=== PATIENT | female | born 1950 | race Caucasian/White ===

== ENCOUNTER 2020-04-21 17:02 | Inpatient (IN) | payer MEDICAID, MEDICARE ==
[2020-04-21 20:21] VITALS: BP 115/70
[2020-04-22] MEDS: Multivitamin Tab PO SCH (08:20)
--- NOTE | 2020-04-22 15:07 | History & Physical ---
ADMIT DATE: 04/21/2020 IDENTIFYING INFORMATION: The patient is a 70-year-old female. CHIEF COMPLAINT: No answer. HISTORY OF PRESENT ILLNESS: The patient was admitted on a hold for danger to self. HISTORY OF PRESENT ILLNESS: The patient was sent on a hold for grave disability. The patient was hyperverbal. She was tangential. She was psychotic, unable to tell the date, where she is, why she is here, hyperverbal. Unable to answer questions regarding suicide, homicide, or visual hallucination. The patient is gravely disabled; however, she agreed to come in. When I tried talk to her, she kept pulling her leg and then tell me great. Unable to participate in a meaningful conversation. The patient is unable to answer questions about sleep and appetite, the details that led to admission, unable to tell me the date, where she is, why she is here, unable to have a formal mental status exam, and answer any questions appropriately. PAST PSYCHIATRIC HISTORY: The patient is a well-known case to me. I have discharged her maybe 2 weeks ago back to the [facility] and I am not sure she has been taking her medication. SUBSTANCE ABUSE HISTORY: Unobtainable. The patient is unable to answer any question. MEDICAL HISTORY: Deferred to the medical doctor. ALLERGIES: THE PATIENT IS ALLERGIC TO LITHIUM. MEDICATIONS: Depakote 500 mg twice a day and Seroquel 25 mg 3 times a day. FAMILY AND SOCIAL HISTORY: The patient is apparently single, never , no children. She lives in a [facility], has been living there for a long period of time. The patient is unable to give me more information regarding education. Substance abuse history, family history, ____ information, unable to get because of her current mental status. The patient is demented, psychotic. MENTAL STATUS EXAMINATION: The patient is appropriately dressed, not very groomed. She was in her room, sitting in her bed. ____ answer the same all questions in the same way like she will say great and then she will pull her leg in front of her. The patient is psychotic, unpredictable, unable to give much information. Unable to take care of her ADLs, unable to tell me the date, where she is, why she is here, unable to test her long or short term memory because she is not cooperative in formal mental status exam, unable to answer questions regarding suicide, homicide ideation, hallucination or paranoia. Unable to tell me any details about her sleep or appetite. Her insight about her illness is poor, does not realize she has a problem. Judgment is poor with her psychotic, agitated behavior. IMPRESSION: Bipolar disorder with psychosis and dementia. MEDICAL DIAGNOSES: Deferred to the medical doctor. Her assets, she is accepting treatment. Negative, poor coping skills. INITIAL TREATMENT PLAN: The patient will go back on medication. We will adjust medication as needed. We will do group therapy, milieu therapy, and individual therapy. ESTIMATED LENGTH OF STAY: 3-7 days. DISCHARGE CRITERIA: Feeling better, no longer acting out. After discharge, outpatient treatment. [facility]# [id number]
--- NOTE | 2020-04-22 15:23 | History & Physical ---
ADMIT DATE: 04/21/2020 CHIEF COMPLAINT: Agitation. HISTORY OF PRESENT ILLNESS: We have a 70-year-old female with bipolar, dementia, who was transferred from outside hospital for acting bizarre and agitated during a custodial meeting. The patient has underlying bipolar with a psychiatric disorder. The patient has advanced dementia. PAST MEDICAL HISTORY: Hypertension, hyperlipidemia, dementia. MEDICATIONS: List reviewed. ALLERGIES: None. SOCIAL HISTORY: Tobacco, IV drugs, ETOH negative. PHYSICAL EXAMINATION: VITAL SIGNS: Temperature is 98.4, pulse 97, respirations 20, blood pressure 136/74, satting 97% on room air. HEENT: Normocephalic, atraumatic head exam. NECK: Supple. CARDIOVASCULAR: Regular rate and rhythm. LUNGS: Decreased breath sounds. ABDOMEN: Soft, nontender. EXTREMITIES: No edema, cyanosis or clubbing. Cranial nerve exam--grossly intact but patient was not cooperative ASSESSMENT AND PLAN: 1. Dementia with agitation. 2. Bipolar. The patient will continue supportive care. I will co-manage with dementia. JOB# [id number] MAT
[2020-04-23] MEDS: Multivitamin Tab PO SCH (09:26)
--- NOTE | 2020-04-23 12:19 | Progress Notes ---
DATE: 04/23/2020 Case was discussed with staff of the patient, reviewed records. The patient continues to be rambling, continues to have poor insight, talking nonstop. Continues to need redirection. Continues to be easily agitated. Cannot carry on a reasonable conversation. She is sleeping well, eating well. No side effects with the medication, no sedation, no nausea, no extrapyramidal symptoms. I will be increasing her Seroquel to 50 mg 3 times a day. No side effects with the medication, no sedation, no nausea, no extrapyramidal symptoms. We will continue outpatient group therapy, milieu therapy, adjust the medication as needed. JOB# [id number]
--- NOTE | 2020-04-23 14:30 | Internal Medicine Prog Note ---
Internal Medicine Subjective - Subjective Service Date: 04/23/20 Patient seen and examined:: without staff Patient is:: awake Per staff patient has:: no adverse event, no episodes of fall Internal Medicine Objective - Physical Exam Vitals and I&O: Vital Signs Temp 0 F 04/23/20 06:13 Pulse 86 04/22/20 20:00 Resp 19 04/22/20 20:00 BP 113/66 04/22/20 20:00 Pulse Ox 97 04/22/20 20:00 Intake & Output 04/22/20 04/23/20 04/23/20 18:59 06:59 18:59 Intake Total 1150 Output Total 0 Balance 1150 0 Intake: Oral 1150 Output: Stool 0 Other: # Voids 3 3 Stool Characteristics Soft Soft Soft Active Medications: Current Medications Acetaminophen (Tylenol) 650 mg PO Q4H PRN PRN Reason: Pain (Mild 1-3) Stop: 06/20/20 19:24 Divalproex Sodium (Depakote Sprinkle) 500 mg PO BID [facility]; Protocol Stop: 06/21/20 08:59 Last Admin: 04/23/20 09:26 Dose: 500 mg Lorazepam (Ativan) 0.5 mg PO Q4HR PRN; Protocol PRN Reason: Anxiety Stop: 05/21/20 19:24 Last Admin: 04/22/20 14:12 Dose: 0.5 mg Multivitamins/Vitamin C (Theragran) 1 tab PO DAILY [facility] Stop: 06/21/20 08:59 Last Admin: 04/23/20 09:26 Dose: 1 tab Quetiapine Fumarate (Seroquel) 50 mg PO TID [facility]; Protocol Stop: 06/22/20 08:59 Last Admin: 04/23/20 14:18 Dose: 50 mg Zolpidem Tartrate (Ambien) 5 mg PO HS PRN PRN Reason: Insomnia Stop: 06/20/20 19:24 Last Admin: 04/23/20 00:24 Dose: 5 mg General: weak HEENT: NC/AT Neck: Supple, No JVD Lungs: CTAB Cardiovascular: RRR Internal Medicine Assmt/Plan - Assessment Assessment: 1. Dementia 2. Bipolar - Plan Plan: check covid-19 no overt symptoms of covid continue supportive care d/w r.n. reviewed complete medical records
[2020-04-24] MEDS: Multivitamin Tab PO SCH (09:04)
--- NOTE | 2020-04-24 13:43 | Internal Medicine Prog Note ---
Internal Medicine Subjective - Subjective Service Date: 04/24/20 Patient seen and examined:: without staff Patient is:: awake, verbal Per staff patient has:: no adverse event, no episodes of fall Internal Medicine Objective - Physical Exam Vitals and I&O: Vital Signs Temp 98.6 F 04/24/20 06:29 Pulse 86 04/24/20 06:29 Resp 18 04/24/20 07:45 BP 125/65 04/24/20 06:29 Pulse Ox 98 04/24/20 06:29 Intake & Output 04/23/20 04/24/20 04/24/20 18:59 06:59 18:59 Intake Total 900 120 Balance 900 120 Intake: Oral 900 120 Other: # Voids 3 3 # Bowel Movements 1 Stool Characteristics Soft Soft Active Medications: Current Medications Acetaminophen (Tylenol) 650 mg PO Q4H PRN PRN Reason: Pain (Mild 1-3) Stop: 06/20/20 19:24 Divalproex Sodium (Depakote Sprinkle) 500 mg PO BID [facility]; Protocol Stop: 06/21/20 08:59 Last Admin: 04/24/20 09:05 Dose: 500 mg Donepezil HCl (Aricept) 10 mg PO HS [facility] Stop: 06/22/20 20:59 Last Admin: 04/23/20 20:57 Dose: 10 mg Lorazepam (Ativan) 0.5 mg PO Q4HR PRN; Protocol PRN Reason: Anxiety Stop: 05/21/20 19:24 Last Admin: 04/22/20 14:12 Dose: 0.5 mg Memantine (Namenda) 5 mg PO BID [facility] Stop: 06/23/20 08:59 Last Admin: 04/24/20 09:04 Dose: 5 mg Multivitamins/Vitamin C (Theragran) 1 tab PO DAILY [facility] Stop: 06/21/20 08:59 Last Admin: 04/24/20 09:04 Dose: 1 tab Mupirocin (Bactroban Oint) 1 appl TP BID [facility] Stop: 06/23/20 08:59 Last Admin: 04/24/20 13:21 Dose: 1 appl Quetiapine Fumarate (Seroquel) 100 mg PO TID [facility]; Protocol Stop: 06/23/20 13:59 Zolpidem Tartrate (Ambien) 5 mg PO HS PRN PRN Reason: Insomnia Stop: 06/20/20 19:24 Last Admin: 04/23/20 20:57 Dose: 5 mg General: weak HEENT: NC/AT Neck: Supple, No JVD Lungs: CTAB Cardiovascular: RRR Extremities: clear Internal Medicine Assmt/Plan - Assessment Assessment: 1. Dementia 2. Bipolar - Plan Plan: no overt symptoms of covid continue supportive care d/w r.n. reviewed complete medical records
--- NOTE | 2020-04-24 21:42 | Progress Notes ---
DATE: 04/24/2020 FOLLOWUP PROGRESS NOTE Case was discussed with staff of the patient, reviewed records. The patient continues to be rambling, loud, continues to have poor insight, unpredictable, and impulsive. She is demented, confused. At the same time, she is manicky, irritable. She is compliant with the medication with no side effects, no sedation or nausea, no extrapyramidal symptoms. I will be increasing her Seroquel to 100 mg twice a day. No side effects with the medication, no sedation, no nausea, no extrapyramidal symptoms. Working on placement. We will continue to work with the patient in group therapy, milieu therapy and adjust the medications as needed. JOB# [id number]
[2020-04-25] MEDS: Multivitamin Tab PO SCH (08:38)
--- NOTE | 2020-04-25 15:08 | Internal Medicine Prog Note ---
Internal Medicine Subjective - Subjective Service Date: 04/25/20 Patient seen and examined:: without staff Patient is:: awake, verbal Per staff patient has:: no adverse event, no episodes of fall Internal Medicine Objective - Results Recent Labs: Laboratory Last Values Coronavirus (PCR) NOT DETECTED (Negative) 04/23/20 10:00 - Physical Exam Vitals and I&O: Vital Signs Temp 98.0 F 04/25/20 14:44 Pulse 88 04/25/20 14:44 Resp 20 04/25/20 14:44 BP 136/76 04/25/20 14:44 Pulse Ox 96 04/25/20 14:44 Intake & Output 04/24/20 04/25/20 04/25/20 18:59 06:59 18:59 Intake Total 800 120 Balance 800 120 Intake: Oral 800 120 Other: # Voids 4 3 # Bowel Movements 1 Active Medications: Current Medications Acetaminophen (Tylenol) 650 mg PO Q4H PRN PRN Reason: Pain (Mild 1-3) Stop: 06/20/20 19:24 Divalproex Sodium (Depakote Sprinkle) 500 mg PO BID [facility]; Protocol Stop: 06/21/20 08:59 Last Admin: 04/25/20 08:38 Dose: 500 mg Donepezil HCl (Aricept) 10 mg PO HS [facility] Stop: 06/22/20 20:59 Last Admin: 04/24/20 21:38 Dose: 10 mg Lorazepam (Ativan) 0.5 mg PO Q4HR PRN; Protocol PRN Reason: Anxiety Stop: 05/21/20 19:24 Last Admin: 04/24/20 21:47 Dose: 0.5 mg Memantine (Namenda) 5 mg PO BID [facility] Stop: 06/23/20 08:59 Last Admin: 04/25/20 08:38 Dose: 5 mg Multivitamins/Vitamin C (Theragran) 1 tab PO DAILY [facility] Stop: 06/21/20 08:59 Last Admin: 04/25/20 08:38 Dose: 1 tab Mupirocin (Bactroban Oint) 1 appl TP BID [facility] Stop: 06/23/20 08:59 Last Admin: 04/25/20 08:39 Dose: 1 appl Quetiapine Fumarate 100 mg/ (Quetiapine Fumarate 50 mg) 150 mg PO TID [facility] Stop: 06/24/20 13:59 Last Admin: 04/25/20 14:18 Dose: 150 mg Zolpidem Tartrate (Ambien) 5 mg PO HS PRN PRN Reason: Insomnia Stop: 06/20/20 19:24 Last Admin: 04/23/20 20:57 Dose: 5 mg General: weak HEENT: NC/AT Neck: Supple, No JVD Lungs: CTAB Cardiovascular: RRR Extremities: clear Neurological: no change Internal Medicine Assmt/Plan - Assessment Assessment: 1. Dementia 2. Bipolar - Plan Plan: continue supportive care d/w r.n. reviewed complete medical records
--- NOTE | 2020-04-25 19:44 | Progress Notes ---
DATE: 04/25/2020 Case was discussed with staff of the patient, reviewed records. The patient continues to be unpredictable, impulsive, talking nonstop, loud, hard to redirect. Continues to have poor insight, unpredictable, impulsive, demented, confused. No side effects with the medication, no sedation, no nausea, no extrapyramidal symptoms. I will be increasing her Seroquel to 150 mg 3 times a day. We will continue the patient in group therapy, milieu therapy, and adjust medication as needed. JOB# [id number]
[2020-04-26] MEDS: Multivitamin Tab PO SCH (08:29)
--- NOTE | 2020-04-27 07:56 | Progress Notes ---
DATE: 04/26/2020 SUBJECTIVE: The patient was seen, chart reviewed, and discussed with staff. The patient continues to be very impulsive, verbose and sexually inappropriate. According to staff, the patient has been having poor physical boundaries with others as well as sometimes disrobing in public and in her room. She has, however, been redirectable, compliant with medications. PLAN: The patient continues to be very unpredictable, so that she will require inpatient care center and treatment. We will monitor on a daily basis for response to medications and titrate meds as needed. JOB# [id number]
[2020-04-27] MEDS: Multivitamin Tab PO SCH (08:21)
--- NOTE | 2020-04-27 17:36 | Progress Notes ---
DATE: SUBJECTIVE: The patient was seen, chart reviewed, and discussed with staff. The patient continues to be very intrusive, needing multiple redirections and sexually inappropriate. She has, however, been redirectable, not required any p.r.n. medications. She has been compliant with medications, denying any side effects. PLAN: The patient continues to be very impulsive. It is felt that she will require inpatient care center and treatment for stabilization and treatment. We will monitor the patient on a daily basis for response to medications and titrate medications as needed. JOB# [id number]
[2020-04-28] MEDS: Multivitamin Tab PO SCH (08:23)
--- NOTE | 2020-04-28 18:53 | Internal Medicine Prog Note ---
Internal Medicine Subjective - Subjective Service Date: 04/28/20 Patient seen and examined:: without staff (still screaming at time inappropriately) Patient is:: awake, verbal Per staff patient has:: no adverse event, no episodes of fall Internal Medicine Objective - Results Recent Labs: Laboratory Last Values Coronavirus (PCR) Negative (Negative) 04/24/20 12:40 - Physical Exam Vitals and I&O: Vital Signs Temp 97.6 F 04/28/20 14:55 Pulse 88 04/28/20 14:55 Resp 19 04/28/20 14:55 BP 138/79 04/28/20 14:55 Pulse Ox 98 04/28/20 14:55 Intake & Output 04/27/20 04/28/20 04/28/20 18:59 06:59 18:59 Intake Total 420 071 6607 Balance 579 156 5353 Intake: Oral 960 408 8840 Other: # Voids 3 2 4 # Bowel Movements 2 1 1 Stool Characteristics Soft Soft Soft Active Medications: Current Medications Acetaminophen (Tylenol) 650 mg PO Q4H PRN PRN Reason: Pain (Mild 1-3) Stop: 06/20/20 19:24 Divalproex Sodium (Depakote Sprinkle) 500 mg PO BID [facility]; Protocol Stop: 06/21/20 08:59 Last Admin: 04/28/20 16:03 Dose: 500 mg Donepezil HCl (Aricept) 10 mg PO HS [facility] Stop: 06/22/20 20:59 Last Admin: 04/27/20 20:30 Dose: 10 mg Lorazepam (Ativan) 0.5 mg PO Q4HR PRN; Protocol PRN Reason: Anxiety Stop: 05/21/20 19:24 Last Admin: 04/28/20 15:08 Dose: 0.5 mg Memantine (Namenda) 5 mg PO BID [facility] Stop: 06/23/20 08:59 Last Admin: 04/28/20 16:03 Dose: 5 mg Multivitamins/Vitamin C (Theragran) 1 tab PO DAILY [facility] Stop: 06/21/20 08:59 Last Admin: 04/28/20 08:23 Dose: 1 tab Mupirocin (Bactroban Oint) 1 appl TP BID [facility] Stop: 06/23/20 08:59 Last Admin: 04/28/20 16:03 Dose: 1 appl Quetiapine Fumarate 100 mg/ (Quetiapine Fumarate 50 mg) 150 mg PO TID [facility] Stop: 06/24/20 13:59 Last Admin: 04/28/20 13:44 Dose: 150 mg Zolpidem Tartrate (Ambien) 5 mg PO HS PRN PRN Reason: Insomnia Stop: 06/20/20 19:24 Last Admin: 04/27/20 20:31 Dose: 5 mg General: weak HEENT: NC/AT Neck: Supple, No JVD Lungs: CTAB Cardiovascular: RRR Extremities: clear Neurological: no change Internal Medicine Assmt/Plan - Assessment Assessment: 1. Dementia 2. Bipolar - Plan Plan: CBC, CMP continue supportive care d/w r.n. reviewed complete medical records Nutritional Asmnt/Malnutr-PDOC - Dietary Evaluation Malnutrition Findings (Please click <Entered> for more info): Nutritional Asmnt/Malnutrition Start: 04/27/20 11: 40 Text: Status: Complete Freq: Protocol: Document 04/27/20 11:41 ALBINO (Rec: 04/27/20 11:43 ALBINO [id number]) Nutritional Asmnt/Malnutrition Patient General Information Nutritional Screening Low Risk Diagnosis Psychosis Pertinent Medical Hx/Surgical Hx Bipolar Disorder, Dementia, HTN, Hyperlipidemia Subjective Information Pt is a 70-year-old female admitted on 04/21 d/t bizarre and agitated behavior. Pt is eating an estimated 87% of meals since readmittance (x5 days) Per Meal/Nutrition Activity Record. Dietary is currently providing an estimated 2200 kcals and 90 gm Pro, per Pt PO intake this is providing an estimated 1900 kcals and 80gm Pro to meet 100 +% kcal and 100+% Pro needs. Spoke with nurse Musa pertaining to diet Rx modification recommendation. Recommending Cardiac Diet Rx d /t Hx HTN, Hyperlipidemia, Obesity (BMI 30.50). Anthropometrics HT: 5 FT WT: 156 LB (70.91 kg) ABW: 114 LB (51.82 kg) BMI: 30.50 (Obese) GI/ Skin Integrity GI: WNL, Soft BM: 04/27 x2 I/O: 920/Not Noted Skin: WNL, Intact Gera: 22 Diet Order: Regular Estimated Energy Needs: (Obese , ABW) 8746-2041 kcals (20-25 kcals/ kg) 40-50g Pro (0.8-1.0 g/kg) 9771-6155 ml (25-30 ml/kg) Current Diet Order/ Nutrition Support Regular Patient / S.O Can Pertinent Medications Theragran Pertinent Labs 03/14: Hgb/Hct 10.6/ 32.4 03/15: Albumin 3.2, Glucose 105 , BUN/Cr 23/0.68 03/12: Triglycerides 161, Cholesterol 214 Nutritional Hx/Data Height 1.52 m Height (Calculated Centimeters) 152.4 Current Weight (lbs) 70.76 kg Weight (Calculated Kilograms) 70.8 Weight (Calculated Grams) 01847.4 [place] Body Weight 100 LB (45.45 kg) % [place] Body Weight 156 Body Mass Index (BMI) 30.4 Weight Status Obese GI Symptoms Last BM 04/27 x2 Skin Integrity/Comment: Skin: WNL, Intact Gera: 22 Current %PO Good (75-100%) Estimated Nutritional Goals BEE in Kcals: Adj wt of IBW Calories/Kcals/Kg 20-25 Kcals Calculated 6488-4505 Protein: Adj wt of IBW Protein g/k.8-1.0 Protein Calculated 40-50 Fluid: ml 6733-8949 ml (25-30 ml/kg) Nutritional Problem 1. Problem Problem Obese, class I Etiology r/t consistent energy overconsumption Signs/Symptoms: aeb BMI 30.50 Malnutrition Related to Morbid Obesity Malnutrition related to morbid obesity No Intervention/Recommendation Comments Recommending Cardiac Diet Rx. Expected Outcomes/Goals Expected Outcomes/Goals 1.PO intake to continue to meet >75% of estimated nutritional needs. 2.Monitor PO intake, wt, nutrition related labs, and skin integrity. 3.Gradual weight loss (0.5-1.0 Lb./week) trending toward IBW . 4.F/U as low risk in 7-10 days , 05/04-05/07.
--- NOTE | 2020-04-28 20:23 | Discharge Summary ---
DATE OF DISCHARGE: 04/28/2020 IDENTIFYING INFORMATION: The patient is a 70-year-old female. CHIEF COMPLAINT: No answer. HISTORY OF PRESENT ILLNESS: The patient was admitted on a hold for danger to self. The patient is on a hold for grave disability, she was hyperverbal. She was tangential, psychotic, unable to tell the date, where she is, why she is here, hyperverbal, able to answer question, which is how she was in her previous admission, she was rambling all the time. She is demented, confused. COURSE IN THE HOSPITAL: The place where she was did not want to take her. Apparently she was changed to Seroquel. She used to be on Zyprexa, increased the dose over the course of her stay to 150 mg 3 times a day. She was on Namenda 5 mg twice a day. The patient also was on Aricept 10 mg at bedtime. Depakote was added as well 500 mg twice a day. The patient progressively got better; however, she still had episodes of yelling and screaming. She does not make sense most of the time. She is demented, confused; however, we were able to find her a place to go, so we felt she could be discharged to a lesser level of care as we think this is her basic level of functioning. The patient unable to take care of her ADLs or be sociable. The patient needs help with her ADLs. The patient was expected to have a placement. FINAL DIAGNOSES: Bipolar disorder, not otherwise specified, dementia. MEDICAL DIAGNOSIS: As per medical doctor. FOLLOWUP: The patient will follow up with the psychiatrist, primary care physician and therapist. EXPECTED OUTCOME: Stable if the patient complies to above. The patient is unable to function socially because of her dementia. The patient is unable to care for ADLs and needs prompting.has no suicidal or homicidal ideation [facility]# [id number] [facility]
[2020-04-29] MEDS: Multivitamin Tab PO SCH (08:16)
--- NOTE | 2020-04-29 19:21 | Progress Notes ---
DATE: 04/29/2020 discharg addendum Case was discussed with staff of the patient, reviewed records. The patient is calm today. Sleeping well, eating well. No suicidal ideation, no homicidal ideation, no paranoia, no side effects. The patient is ready to go to a lesser level of care. She has a place that accepted her. We postponed her discharge from yesterday because she started getting a little bit agitated. The patient is demented, confused, unable to make safe plan for self-care. However, no acting out behavior and the patient will be discharged to a lesser level of care today. DISCHARGE DIAGNOSES: the same as in discharge summary. JOB# [id number] MAT
== END 2020-04-29 15:05 | DRG 885 ==
LOC: GERO 17:02
PROVIDERS: ADMIT Psychiatry & Neurology Psychiatry; ATTEND Psychiatry & Neurology Psychiatry
DX: F31.9 Bipolar disorder, unspecified (principal); F03.90 Unspecified dementia, unspecified severity, without behavioral disturbance, psychotic disturbance, mood disturbance, and anxiety; E78.5 Hyperlipidemia, unspecified; R45.1 Restlessness and agitation; Z79.899 Other long term (current) drug therapy; Z91.048 Other nonmedicinal substance allergy status; I10 Essential (primary) hypertension; Z03.818 Encounter for observation for suspected exposure to other biological agents ruled out
CPT/HCPCS: 83036-90; 90899; G0410; U0003-CS; Z7610